=== PATIENT | female | born 1945 | race Caucasian/White ===

== ENCOUNTER 2017-02-21 09:27 | Emergency (ER) | payer MEDICARE, OTHER ==
[~2017-02-21 09:27] MED LIST: ALORA0.025 MG TD; CIPROFLOXACN500 MG PO; FLORASTOR250 M1 PO; METRONIDAZOL500 MG PO; PROGESTERONE200 MG PO; TESTOSTER TOP; TRAMADOL HCL50 MG PO; UNKNOWN THYROID MED
== END 2017-02-21 09:58 | disposition left against medical advice (07) ==
LOC: ED 09:27 → LWOBS 09:50
DX: Z91.19 Patient's noncompliance with other medical treatment and regimen (principal)